=== PATIENT | male | born 1985 | race Caucasian/White ===

== ENCOUNTER 2017-02-26 20:59 | Emergency (ER) | payer OTHER | END 2017-02-26 21:55 | disposition left against medical advice (07) | LOC: UCEAST 20:59 | DX: S61.419A Laceration without foreign body of unspecified hand, initial encounter (principal); Z53.21 Procedure and treatment not carried out due to patient leaving prior to being seen by health care provider ==

== ENCOUNTER 2017-02-27 12:08 | Emergency (ER) | payer OTHER ==
[2017-02-27 12:29] VITALS: BP 110/71
[2017-02-27] MEDS ORDERED: Tetan/Diph/Pertus SYR(Tdap)* 0.5 ML SYR(BOOSTRIX) use SYR IM ONE (12:52)
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
== END 2017-02-27 13:18 | disposition home or self-care (01) ==
LOC: UCCORT 12:08
DX: S60.511A Abrasion of right hand, initial encounter (principal); S67.191A Crushing injury of left index finger, initial encounter; W23.0XXA Caught, crushed, jammed, or pinched between moving objects, initial encounter; Y93.9 Activity, unspecified; Y92.9 Unspecified place or not applicable; Z23 Encounter for immunization; Z88.5 Allergy status to narcotic agent; F12.90 Cannabis use, unspecified, uncomplicated; F17.210 Nicotine dependence, cigarettes, uncomplicated
CPT/HCPCS: 90471; 90715; 99212; G0463

== ENCOUNTER 2018-09-22 14:07 | Emergency (ER) | payer SELFPAY ==
[2018-09-22 14:35] VITALS: BP 125/77
[2018-09-22] MEDS ORDERED: Ketorolac INJ* 60 MG/2 ML VIAL IM ONE (14:48)
--- NOTE | 2018-09-22 14:55 | UC ---
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 He cannot pinpoint any specific time of injury. The past few days the pain is severe, mostly in the back of the shoulder but feels the pain around the entire joint. He is not able to lif the arm above the head do to pain. there is no deformity of the shoulder noted, no swelling visible. - History of Current Complaint Chief Complaint: UCGeneralIllness Stated Complaint: LEFT SHOULDER PAIN Time Seen by Provider: 09/22/18 14:33 Hx Obtained From: Patient Onset/Duration: Sudden Onset, Lasting Weeks, Worse Since - 2 days Timing: Constant Severity Initially: Mild Severity Currently: Moderate Pain Intensity: 7 Character: Aching Aggravating Factor(s): Lifting, Extension, Internal Rotation, External Rotation , Abduction - above 15-20 degrees in PROM and AROM Alleviating Factor(s): Nothing Associated Signs And Symptoms: Positive: Negative - Allergies/Home Medications Allergies/Adverse Reactions: Allergies Allergy/AdvReac Type Severity Reaction Status Date / Time codeine Allergy Severe violent Verified 09/22/18 14:35 behavior PMH/Surg Hx/FS Hx/Imm Hx Previously Healthy: Yes - Surgical History Surgical History: Yes Surgery Procedure, Year, and Place: APPENDECTOMY - Family History Known Family History: Negative: Blood Disorder - Social History Alcohol Use: None Substance Use Type: Marijuana Substance Use Comment - Amount & Last Used: once a week Smoking Status (MU): Heavy Every Day Tobacco Smoker Type: Cigarettes Amount Used/How Often: 1 PPD Have You Smoked in the Last Year: Yes Household Exposure Type: Cigarettes - Immunization History Most Recent Tetanus Shot: unknown Review of Systems All Other Systems Reviewed And Are Negative: Yes Constitutional: Positive: Negative Skin: Positive: Negative Eyes: Positive: Negative ENT: Positive: Negative Respiratory: Positive: Negative Cardiovascular: Positive: Negative Gastrointestinal: Positive: Negative Genitourinary: Positive: Negative Motor: Positive: Negative Neurovascular: Positive: Negative Musculoskeletal: Positive: Arthralgia, Decreased ROM, Myalgia Neurological: Positive: Negative Psychological: Positive: Negative Is Patient Immunocompromised?: No Physical Exam Triage Information Reviewed: Yes Appearance: Well-Appearing, Pain Distress, Thin Vital Signs: Initial Vital Signs Temp 99.0 F 09/22/18 14:32 Pulse 81 09/22/18 14:32 Resp 20 09/22/18 14:32 BP 125/77 09/22/18 14:32 Pulse Ox 100 09/22/18 14:32 Vital Signs Reviewed: Yes Eye Exam: Normal ENT Exam: Normal Dental Exam: Normal Neck exam: Normal Respiratory Exam: Normal Respiratory: Positive: Chest non-tender Cardiovascular Exam: Normal Cardiovascular: Positive: RRR, No Murmur, Pulses Normal Abdominal Exam: Normal Abdomen Description: Positive: Nontender, No Organomegaly, Soft Musculoskeletal: Positive: Strength Limited @ - in left shoulder abd, INT and EXT rot and any lifting motion, no edema noted, no deformity of crepitus Neurological Exam: Normal Psychological Exam: Normal Skin: Positive: Other - multiple tattoos Shoulder Course/Dx - Course Course Of Treatment: hx obtained, exam performed ,meds reviewed, assessed ROM, patient in agreement with no xray today as it seems to be a soft tissue injury. Sling provided to give shoulder muscles rest and support. Toradol given for pain relief Referral to ortho given. - Differential Dx/Diagnosis Differential Diagnosis/HQI/PQRI: Contusion, Fracture (Closed), Sprain, Strain, Tendonitis Provider Diagnosis: Left shoulder pain Discharge - Sign-Out/Discharge Documenting (check all that apply): Patient Departure All imaging exams completed and their final reports reviewed: No Studies - Discharge Plan Condition: Stable Disposition: HOME Patient Education Materials: Shoulder Pain (ED) Referrals: No Primary Care Phys,NOPCP [Primary Care Provider] - Saran Linda MD [Medical Doctor] - Additional Instructions: 1. Use the sling to rest the muscles of the shoulder 2. You were given toradol today at 3 pm, do not use any ibuprofen or Aleve for 8 hours, may resume at 11 pm, you can use tylenol heat or ice as needed. 3. Follow up with Dr Linda at some point this week, if resting the arm does not improve the pain - Billing Disposition and Condition Condition: STABLE Disposition: Home
== END 2018-09-22 15:12 | disposition home or self-care (01) ==
LOC: UCCORT 14:07
DX: M25.512 Pain in left shoulder (principal); Z88.5 Allergy status to narcotic agent; F17.210 Nicotine dependence, cigarettes, uncomplicated
CPT/HCPCS: 96372; 99212; G0463; J1885

== ENCOUNTER 2018-12-17 19:23 | Emergency (ER) | payer SELFPAY ==
[2018-12-17 21:02] VITALS: BP 124/72
--- NOTE | 2018-12-17 21:25 | UC ---
UC General HPI - HPI Summary HPI Summary: PT STATES NOT WELL LAST PM AT DINNER TIME. AT 3AM DEVELOPED N/V X3. VOMITING HAS STOPPED BUT STILL HAS NAUSEA. TODAY DEVELOPED WATERY DIARRHEA WELL. DENIES FEVER, ABDOMINAL PAIN AND HX IBD. DENIES TRAVEL HX AND RECENT ANTIBIOTIC USE. 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 - History of Current Complaint Chief Complaint: UCGI Stated Complaint: VOMITING Time Seen by Provider: 12/17/18 21:19 Hx Obtained From: Patient Onset/Duration: Gradual Onset Pain Intensity: 16 - Allergy/Home Medications Allergies/Adverse Reactions: Allergies Allergy/AdvReac Type Severity Reaction Status Date / Time codeine Allergy Severe violent Verified 12/17/18 21:00 behavior PMH/Surg Hx/FS Hx/Imm Hx Previously Healthy: Yes - Surgical History Surgical History: Yes Surgery Procedure, Year, and Place: APPENDECTOMY - Family History Known Family History: Positive: Non-Contributory Negative: Blood Disorder - Social History Occupation: Employed Full-time Alcohol Use: Occasionally Substance Use Type: None Substance Use Comment - Amount & Last Used: once a week Smoking Status (MU): Heavy Every Day Tobacco Smoker Type: Cigarettes Amount Used/How Often: 1/2 PPD Have You Smoked in the Last Year: Yes Household Exposure Type: Cigarettes - Immunization History Most Recent Tetanus Shot: unknown Review of Systems All Other Systems Reviewed And Are Negative: Yes Constitutional: Positive: Chills, Fatigue. Negative: Fever Gastrointestinal: Positive: Vomiting, Diarrhea, Nausea. Negative: Abdominal Pain Physical Exam Triage Information Reviewed: Yes Appearance: Well-Appearing Vital Signs: Initial Vital Signs Temp 98 F 12/17/18 20:58 Pulse 101 12/17/18 20:58 Resp 16 12/17/18 20:58 BP 124/72 12/17/18 20:58 Pulse Ox 98 12/17/18 20:58 Vital Signs Reviewed: Yes Eyes: Positive: Conjunctiva Clear ENT: Positive: Pharynx normal, TMs normal. Negative: Nasal congestion, Nasal drainage Neck: Positive: Supple, Nontender, No Lymphadenopathy Respiratory: Positive: Lungs clear, Normal breath sounds, No respiratory distress Cardiovascular: Positive: RRR, No Murmur. Negative: Tachycardia Abdomen Description: Positive: Nontender, No Organomegaly, Soft. Negative: Distended, Guarding Bowel Sounds: Positive: Present Musculoskeletal: Positive: ROM Intact Neurological: Positive: Alert Psychological: Positive: Age Appropriate Behavior Skin Exam: Normal Course/Dx - Differential Dx - Multi-Symptom Differential Diagnoses: Other - NON TOXIC. NO ACUTE ABDOMEN. NO RISK FOR C-DIFF COLITIS OR TRVELERS DIARRHEA/PARASITES. - Diagnoses Provider Diagnosis: Vomiting, Diarrhea Discharge - Sign-Out/Discharge Documenting (check all that apply): Patient Departure All imaging exams completed and their final reports reviewed: No Studies - Discharge Plan Condition: Stable Disposition: HOME Prescriptions: Ondansetron ODT TAB* [Zofran 4 MG Odt TAB*] 4 mg PO Q6H PRN #15 tab.odt PRN Reason: Nausea/Vomiting Patient Education Materials: Acute Nausea and Vomiting (ED), Acute Diarrhea (ED ) Forms: *Work Release Referrals: HANNAH Jackson [Medical Doctor] - Additional Instructions: FOLLOW UP WITH PRIMARY CARE IF NOT BETTER WITHIN 3 DAYS. GO TO THE ER FOR ANY WORSENING. - Billing Disposition and Condition Condition: STABLE Disposition: Home
[2018-12-17] MEDS ORDERED: Ondansetron ODT TAB* 4 MG PO ONE (21:35)
== END 2018-12-17 22:08 | disposition home or self-care (01) ==
LOC: UCCORT 19:23
DX: R11.10 Vomiting, unspecified (principal); R19.7 Diarrhea, unspecified; R53.83 Other fatigue; R68.83 Chills (without fever); Z88.5 Allergy status to narcotic agent; F17.210 Nicotine dependence, cigarettes, uncomplicated
CPT/HCPCS: 99212; A9270-GY; G0463

== ENCOUNTER 2019-01-19 19:54 | Emergency (ER) | payer SELFPAY ==
[2019-01-19 20:20] VITALS: BP 137/86
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
[2019-01-19] MEDS ORDERED: Ibuprofen ADULT LIQ* 600 MG/30 ML UDC PO ONE (20:40)
--- NOTE | 2019-01-20 08:16 | UC ---
- EKG/XRAY/CT Xray Comments: wet read correct Course/Dx - Diagnoses Provider Diagnoses: Multiple abrasions, Contusion of left elbow, Muscle strain of left upper extremity Discharge - Sign-Out/Discharge Documenting (check all that apply): Post-Discharge Follow Up All imaging exams completed and their final reports reviewed: Yes - Discharge Plan Condition: Stable Disposition: HOME Patient Education Materials: Muscle Strain (ED), Contusion in Adults (ED), Abrasion (ED) Forms: *Work Release Referrals: Saran Linda MD [Medical Doctor] - 3 Days Additional Instructions: WEAR THE SLING FOR COMFORT - Billing Disposition and Condition Condition: STABLE Disposition: Home
== END 2019-01-19 21:26 | disposition home or self-care (01) ==
LOC: UCCORT 19:54
DX: S50.02XA Contusion of left elbow, initial encounter (principal); S43.402A Unspecified sprain of left shoulder joint, initial encounter; F17.210 Nicotine dependence, cigarettes, uncomplicated; V29.88XA Motorcycle rider (driver) (passenger) injured in other specified transport accidents, initial encounter; Y92.488 Other paved roadways as the place of occurrence of the external cause; Y93.I9 Activity, other involving external motion; Z88.5 Allergy status to narcotic agent
CPT/HCPCS: 99213; A9270-GY; G0463